=== PATIENT | male | born 1940 | race Caucasian/White ===

== ENCOUNTER → 2016-12-09 | Outpatient (CLI) | payer OTHER, MEDICARE | LOC: MMPC 09:00 | PROVIDERS: ATTEND Family Medicine | DX: R41.3 Other amnesia (principal); M54.2 Cervicalgia; M25.512 Pain in left shoulder; M25.511 Pain in right shoulder | CPT/HCPCS: 99214; G0463 ==

== ENCOUNTER 2016-12-16 12:13 | Emergency (ER) | payer OTHER, MEDICARE ==
[2016-12-16 13:01] VITALS: RESP 16; TEMP 98.5
[2016-12-16] MEDS ORDERED: NORMAL SALINE 10 ML SYRINGE FLUSH IVP PRN (13:01)
[2016-12-16 13:31] LABS: BUN/CREATININE RATIO 14.44 (6-20); CALCIUM 9.6 mg/dL (8.7-10.7); CREATININE 0.9 mg/dL (0.70-1.50); POTASSIUM 4.2 meq/L (3.8-5.2)
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
== END 2016-12-16 15:17 | disposition home or self-care (01) ==
LOC: ER 12:13
DX: H53.2 Diplopia (principal); R07.89 Other chest pain
CPT/HCPCS: 70470; 80048; 99283

== ENCOUNTER → 2016-12-19 | Outpatient (CLI) | payer OTHER, MEDICARE ==
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
== END ==
LOC: MOB RAD 14:44
PROVIDERS: ATTEND Family Medicine
DX: R07.9 Chest pain, unspecified (principal); R06.02 Shortness of breath; Z98.890 Other specified postprocedural states
CPT/HCPCS: 71020; 99213

== ENCOUNTER → 2017-06-18 | Outpatient (CLI) | payer OTHER, MEDICARE | LOC: MMPC 09:00 | PROVIDERS: ATTEND Physician Assistant Medical | DX: R07.81 Pleurodynia (principal) | CPT/HCPCS: 99213; G0463 ==